=== PATIENT | female | born 1950 | race Two or more races ===

== ENCOUNTER 2018-08-11 13:56 | Outpatient (CLI) | payer OTHER ==
[~2018-08-11 13:56] MED LIST: ATACAND4 MG; GLUMETZA1000 MG; JANUMET XR 1001 EACH; PROVENTIL0.5 ML/2.5; XOPENEX0.63 MG/3
== END 2018-08-11 14:05 | disposition home or self-care (01) ==
LOC: MRI 13:56
DX: M79.A12 Nontraumatic compartment syndrome of left upper extremity (principal)
CPT/HCPCS: 73221

== ENCOUNTER → 2021-09-03 07:09 | Outpatient (CLI) | payer OTHER | END | disposition home or self-care (01) | LOC: NUCLEAR 08-02 07:00 | PROVIDERS: ATTEND Internal Medicine Cardiovascular Disease | DX: I10 Essential (primary) hypertension (principal); E11.9 Type 2 diabetes mellitus without complications; Z88.6 Allergy status to analgesic agent; Z88.0 Allergy status to penicillin | CPT/HCPCS: 78452; 93017; A9500 ==

== ENCOUNTER 2021-10-26 07:39 | Emergency (ER) | payer OTHER ==
[~2021-10-26] VITALS: Ht 154.9 cm; Wt 63.5 kg
[2021-10-26] MEDS ORDERED: GLIMEPIRIDE2 MG PO (07:58)
[2021-10-26] MEDS ORDERED: FARXIGA10 MG PO (07:58)
[2021-10-26] MEDS ORDERED: OZEMPIC0.25 MG/0. (08:00)
== END 2021-10-26 11:52 ==
LOC: ER 07:39
DX: M79.662 Pain in left lower leg (principal); M54.50 Low back pain, unspecified; E11.9 Type 2 diabetes mellitus without complications; Z88.0 Allergy status to penicillin; Z88.6 Allergy status to analgesic agent; I10 Essential (primary) hypertension

== ENCOUNTER 2022-12-31 06:27 | Outpatient (CLI) | payer OTHER ==
[2022-12-31 07:53] LABS: HEMATOCRIT 45.7 % (36.0-45.00); HEMOGLOBIN 15.3 g/dL (12.0-15.00); MEAN CELL VOLUME 85.9 fL (80.00-100.00); MEAN CORPUSCULAR HEMOGLOBIN 28.8 pg (27.00-32.0); MEAN CORPUSCULAR HGB CONC 33.5 g/dl (32.0-36.0); PLATELET COUNT 199 K/uL (150-450); RED BLOOD COUNT 5.32 M/uL (4.00-6.00); RED CELL DISTRIBUTION WIDTH 14.6 % (11.5-14.5)
[2022-12-31 08:48] LABS: ALBUMIN 3.7 gm/dL (3.4-5.0); BILIRUBIN TOTAL 0.45 mg/dL (0.3-1.2); CALCIUM 9.4 mg/dL (8.5-10.1); CREATININE SERUM 0.7 mg/dL (0.55-1.02); GFR 82.02; GLOBULINA 3.1 G/DL (2.4-3.5); POTASSIUM 4.55 mEq/L (3.5-5.1); TOTAL PROTEIN 6.8 gm/dL (6.4-8.2)
[2022-12-31 09:34] LABS: MANUAL PLATELET COUNT 338
[2022-12-31 09:35] LABS: PLATELET ESTIMATE NORMAL (NORMAL)
[2022-12-31 11:34] LABS: T4 FREE 1.06 NG/ML (0.76-1.46); TSH 2.56 uIU/mL (0.358-3.74)
== END 2022-12-31 06:28 | disposition home or self-care (01) ==
LOC: LAB 06:27 → EDBD 06:27 → LAB 06:28
PROVIDERS: ATTEND Internal Medicine Hematology & Oncology
DX: D50.8 Other iron deficiency anemias (principal); R79.9 Abnormal finding of blood chemistry, unspecified; I10 Essential (primary) hypertension; R74.02 Elevation of levels of lactic acid dehydrogenase [LDH]; K76.89 Other specified diseases of liver; D63.8 Anemia in other chronic diseases classified elsewhere; D55.0 Anemia due to glucose-6-phosphate dehydrogenase [G6PD] deficiency; D51.8 Other vitamin B12 deficiency anemias; D51.1 Vitamin B12 deficiency anemia due to selective vitamin B12 malabsorption with proteinuria; D51.0 Vitamin B12 deficiency anemia due to intrinsic factor deficiency; E03.8 Other specified hypothyroidism; E06.3 Autoimmune thyroiditis; C50.919 Malignant neoplasm of unspecified site of unspecified female breast; R97.8 Other abnormal tumor markers; R97.0 Elevated carcinoembryonic antigen [CEA]; C50.411 Malignant neoplasm of upper-outer quadrant of right female breast; E11.9 Type 2 diabetes mellitus without complications; D35.02 Benign neoplasm of left adrenal gland; K85.90 Acute pancreatitis without necrosis or infection, unspecified; Z88.0 Allergy status to penicillin; Z88.6 Allergy status to analgesic agent

== ENCOUNTER 2022-12-31 09:32 | Outpatient (CLI) | payer OTHER | END 2022-12-31 09:45 | disposition home or self-care (01) | LOC: MAMO-SONO 09:32 | PROVIDERS: ATTEND Internal Medicine Hematology & Oncology | DX: Z12.31 Encounter for screening mammogram for malignant neoplasm of breast (principal); N63.0 Unspecified lump in unspecified breast; N64.4 Mastodynia; C50.411 Malignant neoplasm of upper-outer quadrant of right female breast; E04.2 Nontoxic multinodular goiter ==

== ENCOUNTER → 2022-12-31 | Outpatient (CLI) | payer OTHER ==
[~2022-12-31] MED LIST changes: +FARXIGA10 MG PO; +GLIMEPIRIDE2 MG PO; +OZEMPIC0.25 MG/0.
== END | disposition home or self-care (01) ==
LOC: NUCLEAR 08:21 → EDBD 09:00 → NUCLEAR 09:00
PROVIDERS: ATTEND Internal Medicine Cardiovascular Disease
DX: I73.9 Peripheral vascular disease, unspecified (principal); G45.9 Transient cerebral ischemic attack, unspecified

== ENCOUNTER 2023-01-01 08:56 | Outpatient (CLI) | payer OTHER | END 2023-01-01 08:57 | disposition home or self-care (01) | LOC: NUCLEAR 08:56 → EDBD 09:00 → NUCLEAR 09:00 | PROVIDERS: ATTEND Internal Medicine Cardiovascular Disease | DX: G45.9 Transient cerebral ischemic attack, unspecified (principal) ==

== ENCOUNTER 2023-01-28 11:33 | Outpatient (CLI) | payer OTHER | END 2023-01-28 11:38 | disposition home or self-care (01) | LOC: MRI 11:33 | PROVIDERS: ATTEND Internal Medicine Rheumatology | DX: M47.817 Spondylosis without myelopathy or radiculopathy, lumbosacral region (principal); M54.59 Other low back pain | CPT/HCPCS: 72148 ==

== ENCOUNTER 2023-03-26 14:29 | Outpatient (CLI) | payer OTHER | END 2023-03-26 14:40 | disposition home or self-care (01) | LOC: SONOGRAMA 14:29 | PROVIDERS: ATTEND Pathology Anatomic Pathology & Clinical Pathology | DX: D34 Benign neoplasm of thyroid gland (principal); E07.89 Other specified disorders of thyroid; E04.2 Nontoxic multinodular goiter ==

== ENCOUNTER → 2023-04-29 07:19 | Outpatient (CLI) | payer OTHER ==
[2023-04-29 08:22] LABS: HEMATOCRIT 43.4 % (36.0-45.00); HEMOGLOBIN 14.6 g/dL (12.0-15.00); MEAN CORPUSCULAR HEMOGLOBIN 28.9 pg (27.00-32.0); MEAN CORPUSCULAR HGB CONC 33.6 g/dl (32.0-36.0); PLATELET COUNT 215 K/uL (150-450); RED BLOOD COUNT 5.05 M/uL (4.00-6.00)
[2023-04-29 09:10] LABS: ALBUMIN 3.6 gm/dL (3.4-5.0); BILIRUBIN TOTAL 0.38 mg/dL (0.3-1.2); CALCIUM 8.9 mg/dL (8.5-10.1); CREATININE SERUM 0.61 mg/dL (0.55-1.02); GFR 96.14; POTASSIUM 4.06 mEq/L (3.5-5.1); T4 FREE 1.03 NG/ML (0.76-1.46); TOTAL PROTEIN 6.6 gm/dL (6.4-8.2); TSH 2.76 uIU/mL (0.358-3.74)
[2023-04-29 11:24] LABS: FOLIC ACID 17.21 ng/ml (4.78-20)
[2023-04-30 09:10] LABS: CA 125 9.8 U/mL (0.0-38.1); CA 15-3 8.7 U/mL (0.0-25.0)
[2023-04-30 15:20] LABS: MANUAL PLATELET COUNT 284
[2023-04-30 15:21] LABS: PLATELET ESTIMATE NORMAL (NORMAL)
[2023-05-03 17:10] LABS: INTRINSIC FACTOR BLOCKING AB 1.1 AU/mL (0.0-1.1)
== END | disposition home or self-care (01) ==
LOC: LAB 07:19
PROVIDERS: ATTEND Internal Medicine Hematology & Oncology
DX: D50.8 Other iron deficiency anemias (principal); R79.9 Abnormal finding of blood chemistry, unspecified; I10 Essential (primary) hypertension; R74.02 Elevation of levels of lactic acid dehydrogenase [LDH]; K76.89 Other specified diseases of liver; D51.8 Other vitamin B12 deficiency anemias; D51.1 Vitamin B12 deficiency anemia due to selective vitamin B12 malabsorption with proteinuria; D51.0 Vitamin B12 deficiency anemia due to intrinsic factor deficiency; E03.8 Other specified hypothyroidism; E04.2 Nontoxic multinodular goiter

== ENCOUNTER → 2023-08-22 | Emergency (ER) | payer OTHER ==
[~2023-08-22] VITALS: Ht 154.9 cm; Wt 63.0 kg
[~2023-08-22] MED LIST changes: +0.9 % SODIUM CHLORIDE 500 ML IV ONE; +CLINDAMYCIN PHOSPHATE 150 MG/ML (600mg) IM ONE; +CRESTOR20 MG PO; +LANTUS SOL100 UNIT/1; +MEPERIDINE HCL/PF 25 MG/ML VIAL IM ONE; +ZETIA10 MG PO
[2023-08-22 09:55] LABS: HEMATOCRIT 45.1 % (36.0-45.00); HEMOGLOBIN 15.1 g/dL (12.0-15.00); MEAN CELL VOLUME 85.6 fL (80.00-100.00); MEAN CORPUSCULAR HEMOGLOBIN 28.6 pg (27.00-32.0); MEAN CORPUSCULAR HGB CONC 33.4 g/dl (32.0-36.0); PLATELET COUNT 206 K/uL (150-450); RED BLOOD COUNT 5.27 M/uL (4.00-6.00); RED CELL DISTRIBUTION WIDTH 13.9 % (11.5-14.5)
[2023-08-22 10:04] LABS: ERYTHROCYTE SEDIMENTATION RATE 16 mm/hr
[2023-08-22 10:17] LABS: ALBUMIN 3.5 gm/dL (3.4-5.0); BILIRUBIN TOTAL 0.35 mg/dL (0.3-1.2); CALCIUM 9.1 mg/dL (8.5-10.1); CREATININE SERUM 1.17 mg/dL (0.55-1.02); GFR 45.22; GLOBULINA 3.6 G/DL (2.4-3.5); POTASSIUM 3.93 mEq/L (3.5-5.1); TOTAL PROTEIN 7.1 gm/dL (6.4-8.2)
== END | disposition home or self-care (01) ==
LOC: ER 08:28
PROVIDERS: General Practice
DX: L03.011 Cellulitis of right finger (principal); L02.511 Cutaneous abscess of right hand; Z88.6 Allergy status to analgesic agent; Z88.0 Allergy status to penicillin; Z85.89 Personal history of malignant neoplasm of other organs and systems; E11.9 Type 2 diabetes mellitus without complications; Z79.4 Long term (current) use of insulin; K57.32 Diverticulitis of large intestine without perforation or abscess without bleeding
CPT/HCPCS: 73130; 96365; 96372; 99283; J3490; J7042

== ENCOUNTER 2023-12-04 07:22 | Outpatient (CLI) | payer OTHER ==
[~2023-12-04 07:22] MED LIST changes: -0.9 % SODIUM CHLORIDE 500 ML IV ONE; -CLINDAMYCIN PHOSPHATE 150 MG/ML (600mg) IM ONE; -MEPERIDINE HCL/PF 25 MG/ML VIAL IM ONE
== END 2023-12-04 07:23 | disposition home or self-care (01) ==
LOC: NUCLEAR 07:22
PROVIDERS: ATTEND Internal Medicine
DX: I20.9 Angina pectoris, unspecified (principal)
CPT/HCPCS: 78452; 93017; A9500

== ENCOUNTER 2024-01-25 06:49 | Outpatient (CLI) | payer OTHER | END 2024-01-25 15:24 | disposition home or self-care (01) | LOC: TOM 06:49 | DX: D35.02 Benign neoplasm of left adrenal gland (principal) | CPT/HCPCS: 74160; Q9965 ==

== ENCOUNTER 2024-04-26 11:43 | Outpatient (CLI) | payer OTHER | END 2024-04-26 11:53 | disposition home or self-care (01) | LOC: MAMO-SONO 11:43 | PROVIDERS: ATTEND Internal Medicine Hematology & Oncology | DX: C50.411 Malignant neoplasm of upper-outer quadrant of right female breast (principal); N64.4 Mastodynia; N63.0 Unspecified lump in unspecified breast; D51.0 Vitamin B12 deficiency anemia due to intrinsic factor deficiency; I10 Essential (primary) hypertension; E11.9 Type 2 diabetes mellitus without complications; E78.2 Mixed hyperlipidemia; D35.02 Benign neoplasm of left adrenal gland; E03.8 Other specified hypothyroidism; E04.2 Nontoxic multinodular goiter; K85.3 Drug induced acute pancreatitis; Z12.31 Encounter for screening mammogram for malignant neoplasm of breast ==

== ENCOUNTER 2024-05-02 06:20 | Outpatient (CLI) | payer OTHER ==
[2024-05-02 07:43] LABS: HEMATOCRIT 44.4 % (36.0-45.00); HEMOGLOBIN 14.8 g/dL (12.0-15.00); MEAN CORPUSCULAR HEMOGLOBIN 28.7 pg (27.00-32.0); MEAN CORPUSCULAR HGB CONC 33.4 g/dl (32.0-36.0); PLATELET COUNT 201 K/uL (150-450); RED BLOOD COUNT 5.15 M/uL (4.00-6.00); RED CELL DISTRIBUTION WIDTH 14.3 % (11.5-14.5)
[2024-05-02 08:41] LABS: ALBUMIN 3.4 gm/dL (3.4-5.0); BILIRUBIN TOTAL 0.37 mg/dL (0.3-1.2); CALCIUM 8.6 mg/dL (8.5-10.1); CREATININE SERUM 0.7 mg/dL (0.55-1.02); GFR 81.8; GLOBULINA 2.9 G/DL (2.4-3.5); POTASSIUM 4.32 mEq/L (3.5-5.1); T4 FREE 0.99 NG/ML (0.76-1.46); TOTAL PROTEIN 6.3 gm/dL (6.4-8.2); TSH 3.05 uIU/mL (0.358-3.74)
[2024-05-02 11:02] LABS: FOLIC ACID 14.54 ng/ml (4.78-20)
[2024-05-03 09:56] LABS: MANUAL PLATELET COUNT 284
[2024-05-03 09:57] LABS: PLATELET ESTIMATE NORMAL (NORMAL)
[2024-05-03 11:50] LABS: CA 125 9.6 U/mL (0.0-38.1); CA 15-3 8.6 U/mL (0.0-25.0); CA 19-9 < 2 U/mL (0-35)
== END 2024-05-02 06:25 | disposition home or self-care (01) ==
LOC: LAB 06:20
PROVIDERS: ATTEND Internal Medicine Hematology & Oncology
DX: C50.411 Malignant neoplasm of upper-outer quadrant of right female breast (principal); D51.0 Vitamin B12 deficiency anemia due to intrinsic factor deficiency; I10 Essential (primary) hypertension; E11.9 Type 2 diabetes mellitus without complications; E78.2 Mixed hyperlipidemia; D35.02 Benign neoplasm of left adrenal gland; E03.8 Other specified hypothyroidism; E04.2 Nontoxic multinodular goiter; K85.3 Drug induced acute pancreatitis; D50.8 Other iron deficiency anemias; R79.9 Abnormal finding of blood chemistry, unspecified; R74.02 Elevation of levels of lactic acid dehydrogenase [LDH]; K76.89 Other specified diseases of liver; D51.8 Other vitamin B12 deficiency anemias; D51.1 Vitamin B12 deficiency anemia due to selective vitamin B12 malabsorption with proteinuria; C25.9 Malignant neoplasm of pancreas, unspecified; C50.919 Malignant neoplasm of unspecified site of unspecified female breast; R97.0 Elevated carcinoembryonic antigen [CEA]

== ENCOUNTER 2024-05-09 13:15 | Outpatient (CLI) | payer OTHER | END 2024-05-09 13:20 | disposition home or self-care (01) | LOC: RAD 13:15 | DX: M54.2 Cervicalgia (principal); M25.512 Pain in left shoulder ==

== ENCOUNTER → 2025-01-03 06:39 | Outpatient (CLI) | payer OTHER ==
[2025-01-03 08:15] LABS: BASO % 0.6 % (0.1-1.2); EOS # 0.11 (0.04-0.54); EOS % 1.7 % (0.7-7.0); LYMPH # 1.74 (1.18-3.74); LYMPH % 26.3 % (19.3-53.1); MEAN PLATELET VOLUME 11.50 fl (9.4-12.4); MONO # 0.35 (0.24-0.82); MONO % 5.3 % (4.7-12.5); NEUT # 4.34 (1.56-6.13); NEUT % 65.6 % (34.0-71.1); RED CELL DISTRIBUTION WIDTH 14.1 % (11.6-14.4)
[2025-01-03 08:50] LABS: % SATURACION 19.9 % (15-50); ALT/SGPT 32.0 U/L (12-78); AST/SGOT 21.0 U/L (15-37); BILIRUBIN TOTAL 0.45 mg/dL (0.3-1.2); BUN CREA RATIO 28.0 (7.0-25.0); CREATININE SERUM 0.68 mg/dL (0.55-1.02); FE 64.0 ug/dl (50-170); GFR 84.35; GLOBULINA 3.1 G/DL (2.4-3.5); GLUCOSE FASTING 115.0 mg/dL (65-100); LDH 191.0 U/L (84-246); OSMOLALITY SERUM 290.0 MOSM/KG (275-295)
[2025-01-03 10:21] LABS: FOLIC ACID 19.21 ng/ml (4.78-20); VITAMIN D3 25 HYDROXY 55.06 ng/ml (30-120)
[2025-01-04 10:07] LABS: CA 125 11.6 U/mL (0.0-38.1); CA 15-3 9.1 U/mL (0.0-25.0); CA 19-9 < 2 U/mL (0-35)
== END | disposition home or self-care (01) ==
LOC: LAB 06:39
PROVIDERS: ATTEND Internal Medicine Hematology & Oncology
DX: C50.411 Malignant neoplasm of upper-outer quadrant of right female breast (principal); D51.0 Vitamin B12 deficiency anemia due to intrinsic factor deficiency; D44.12 Neoplasm of uncertain behavior of left adrenal gland; I10 Essential (primary) hypertension; E11.9 Type 2 diabetes mellitus without complications; E78.2 Mixed hyperlipidemia; E03.8 Other specified hypothyroidism; E04.2 Nontoxic multinodular goiter; K85.3 Drug induced acute pancreatitis; D50.8 Other iron deficiency anemias; R79.9 Abnormal finding of blood chemistry, unspecified; R74.02 Elevation of levels of lactic acid dehydrogenase [LDH]; K76.89 Other specified diseases of liver; C50.919 Malignant neoplasm of unspecified site of unspecified female breast; C25.9 Malignant neoplasm of pancreas, unspecified; R97.0 Elevated carcinoembryonic antigen [CEA]